=== PATIENT | male | born 1965 | race Caucasian/White ===

== ENCOUNTER 2016-03-11 22:45 | Emergency (ER) | payer OTHER ==
[~2016-03-11] VITALS: Ht 188 cm; Wt 120.2 kg
[2016-03-12 00:08] VITALS: BP 126/76
--- NOTE | 2016-03-12 02:06 | ED.ADGEN ---
Past Medical History Past Medical History: No Pertinent History Past Surgical History: Tonsillectomy Additional Past Surgical Histo: knee sx neck sx for cysts Alcohol Use: Occasionally Drug Use: None Adult General Chief Complaint Chief Complaint: BLOODY STOOL HPI HPI Patient is a 50 year old man, with no significant past no history, who presents to the emergency department with a complaint of "a bump" on his rectum , and bleeding today. Patient states that he has had hemorrhoids before. He states that he noticed a bump in his rectal area yesterday taking a shower, states that it was mildly tender, but otherwise unremarkable, denies any diarrhea, any bloody stools, abdominal pain, any weakness emesis or tingling, any injuries. Patient states that he brought himself so medicated wipes for hemorrhoids, and was using the weights earlier today, when he noted there is blood on the whites. States that there is a moderate amount of bleeding, and a small amount of pain. He states that at one point something like a blood clot came loose onto the pads. 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 He states that he then came to the ED for evaluation. Patient is not experiencing any bleeding at this time. He denies any similar symptoms previously, any other complaints, no chest pain, shortness breath, no fevers or chills, discharge or drainage. No sexual activity involving the rectum and no insertions. He has not previously had a colonoscopy or other evaluation of the GI tract. Review of Systems Review of Systems Constitutional: Denies fever or chills. [] Eyes: Denies change in visual acuity. [] HENT: Denies nasal congestion or sore throat. [] Respiratory: Denies cough or shortness of breath. [] Cardiovascular: Denies chest pain or edema. [] GI: Denies abdominal pain, nausea, vomiting, bloody stools or diarrhea. [] : Denies dysuria. Hemorrhoids. Noted to have rectal "bump" and bleeding. Musculoskeletal: Denies back pain or joint pain. [] Integument: Denies rash. [] Neurologic: Denies headache, focal weakness or sensory changes. [] Endocrine: Denies polyuria or polydipsia. [] Lymphatic: Denies swollen glands. [] Psychiatric: Denies depression or anxiety. [] Allergies Allergies Allergies Coded Allergies Type Severity Reaction Last Updated Verified No Known Drug Allergies 03/11/16 No Physical Exam Physical Exam Constitutional: Well developed, well nourished, no acute distress, non-toxic appearance. [] HENT: Normocephalic, atraumatic, bilateral external ears normal, oropharynx moist, no oral exudates, nose normal. [] Eyes: PERRLA, EOMI, conjunctiva normal, no discharge. [] Neck: Normal range of motion, no tenderness, supple, no stridor. [] Cardiovascular:Heart rate regular rhythm, no murmur, S1, S2, rubs or gallops. [] Lungs & Thorax: Bilateral breath sounds clear to auscultation, no wheezing, rhonchi, rales. No chest tenderness or crepitus. [] Abdomen: Bowel sounds normal, soft, no tenderness, no rebound, rigidity, no guarding, no masses, no pulsatile masses. [] Skin: Warm, dry, no erythema, no rash. [] Back: No tenderness, no CVA tenderness. [] Extremities: No tenderness, no cyanosis, no clubbing, ROM intact, no edema. [] Neurologic: Alert and oriented X 3, normal motor function, normal sensory function, no focal deficits noted. [] Psychologic: Affect normal, judgement normal, mood normal. [] Rectal examination: Patient noted to have what appears to be an is acutely related thrombosed hemorrhoid at the 5 o'clock position. Area is very mildly tender, nose normal evidence of inflammation or infection, no active bleeding, although there is very mild oozing of blood with my palpation. No other abnormalities identified on rectal examination. Exam is nontender with no masses or other concerning findings. Current Patient Data Vital Signs Vital Signs Date Time Temp Pulse Resp B/P Pulse Ox O2 Delivery O2 Flow Rate FiO2 03/11/16 23:00 98.8 78 16 132/80 95 Room Air 98.8 EKG EKG Not indicated. [] Radiology/Procedures Radiology/Procedures Not indicated. [] Course & Med Decision Making Course & Med Decision Making Pertinent Labs and Imaging studies reviewed. (See chart for details) Discussed the patient that his examination is consistent with a hemorrhoid. Patient states that he has hemorrhaged time to time, as he works as a manager life, does occasionally strains constipation as well, has U stool softeners the past. Denies any constipation recently. Denies any other symptoms or complaints. Has patient is not having bleeding at this time, I instructed him to continue using the medicated wipes as needed, and stated that he may have some continued oozing , and to return to the ED immediately if any significant bleeding does develop. Patient voiced understanding, plans to follow up with his primary care provider once he returns to [place], for referral to GI/colorectal surgery for additional evaluation, and will go to the closest ED if any concerning symptoms develop. Patient discharged home in stable condition with plan as above. Dragon Disclaimer Dragon Disclaimer This electronic medical record was generated, in whole or in part, using a voice recognition dictation system. Departure Impression: Primary Impression: Hemorrhoid Disposition: 01 HOME, SELF-CARE Condition: STABLE Problem Qualifiers Primary Impression: Hemorrhoid Hemorrhoid type: unspecified Qualified Code: K64.9 - Unspecified hemorrhoids ERLINDA JOHN DO Mar 12, 2016 02:06
== END 2016-03-12 00:15 | disposition home or self-care (01) ==
LOC: ER 22:45
DX: K64.5 Perianal venous thrombosis (principal)
CPT/HCPCS: 99283